=== PATIENT | male | born 2000 | race Caucasian/White ===

== ENCOUNTER 2021-08-08 00:38 | Inpatient (IN) | payer OTHER ==
[~2021-08-08] VITALS: Ht 188 cm; Wt 65.8 kg
[2021-08-08] VITALS (9 sets, daily range): BP systolic 99–136; BP diastolic 59–78
[2021-08-08] MEDS ORDERED: LACTATED RINGERS 1,000 ML IV ONE ×3 (02:15→04:54)
[2021-08-08 02:23] LABS: BILIRUBIN,URINE NEGATIVE (NEGATIVE); CLARITY,URINE CLEAR; COLOR,URINE YELLOW; GLUCOSE, URINE (UA) NEGATIVE (NEGATIVE); KETONES,URINE NEGATIVE (NEGATIVE); LEUKOCYTE ESTERASE ,URINE NEGATIVE (NEGATIVE); NITRITE,URINE NEGATIVE (NEGATIVE); PROTEIN,URINE NEGATIVE (NEGATIVE)
[2021-08-08 02:28] LABS: BASOPHILS # (AUTO) 0.1 10^3/uL (0.0-0.1); BASOPHILS % (AUTO) 0 % (0-10); EOSINOPHILS % (AUTO) 0 % (0-10); HEMATOCRIT 46 % (40-54); HEMOGLOBIN 15.8 g/dL (13.3-17.7); LYMPHOCYTES # (AUTO) 0.7 10^3/uL (1.0-4.0); LYMPHOCYTES % (AUTO) 4 % (12-44); MEAN CORPUSCULAR HEMOGLOBIN 30 pg (25-34); MEAN CORPUSCULAR HGB CONC 34 g/dL (32-36); MEAN CORPUSCULAR VOLUME 87 fL (80-99); MEAN PLATELET VOLUME 11.2 fL (9.0-12.2); MONOCYTES % (AUTO) 5 % (0-12); NEUTROPHILS # (AUTO) 16.5 10^3/uL (1.8-7.8); NEUTROPHILS % (AUTO) 90 % (42-75); PLATELET COUNT 271 10^3/uL (130-400); WHITE BLOOD COUNT 18.3 10^3/uL (4.3-11.0)
[2021-08-08 02:33] LABS: ALBUMIN 4.8 GM/DL (3.2-4.5); CHLORIDE 101 MMOL/L (98-107); SODIUM 137 MMOL/L (135-145)
[2021-08-08 02:34] LABS: AMYLASE 85 U/L (25-125); CALCIUM 9.6 MG/DL (8.5-10.1)
[2021-08-08 02:36] LABS: GLUCOSE 150 MG/DL (70-105); TOTAL PROTEIN 7.5 GM/DL (6.4-8.2)
[2021-08-08 02:37] LABS: BILIRUBIN,TOTAL 1.2 MG/DL (0.1-1.0); CARBON DIOXIDE 21 MMOL/L (21-32)
[2021-08-08 02:39] LABS: ALKALINE PHOSPHATASE 63 U/L (40-136); AMORPHOUS SEDIMENT,UR FEW AMOR PHOSPHATE /LPF; BACTERIA,URINE FEW /HPF; CREATININE SERUM 0.93 MG/DL (0.60-1.30); GFR ESTIMATED 120
[2021-08-08 02:40] LABS: BUN/CREATININE RATIO 8
[2021-08-08 02:42] LABS: ALANINE AMINOTRANSFERASE 13 U/L (0-55)
[2021-08-08 02:43] LABS: LIPASE 6 U/L (8-78)
[2021-08-08] MEDS ORDERED: NS 100 ML (IVPB) BAG IV ONE (03:00)
[2021-08-08] MEDS ORDERED: IOHEXOL 350 MG/ML 100 ML (OMNIPAQUE 350) VIAL IV ONE (03:00)
[2021-08-08] MEDS ORDERED: CATHETER FLUSH 10 ML SYR IV PRN (03:00)
--- NOTE | 2021-08-08 03:01 | ED Abdominal Pain ---
General Chief Complaint: Abdominal/GI Problems Stated Complaint: ABD PAIN Nursing Triage Note: PT ARRIVAL TO ER WITH COMPLAINT OF ABDOMINAL PAIN X 24 HOURS. PT DENIES NAUSEA, VOMITING, OR DIARRHEA. PT STATES THAT PAIN IS A BLOATING LIKE PAIN THAT IS CONSTANT. Source of Information: Patient History of Present Illness Date Seen by Provider: Aug 08, 2021 Time Seen by Provider: 01:55 Initial Comments PT ARRIVES VIA POV C/O GENERALIZED ABDOMINAL PAIN SINCE 2200 LAST NIGHT PAIN FEELS LIKE A CONSTANT PRESSURE/BLOATED FEELING PAIN WAXES AND WANES, BUT NEVER GOES AWAY--RATES PAIN 8-9 AT WORST, 6-7 NOW. NOTHING WORSENS OR IMPROVES PAIN HAS TRIED TAKING 2 PHAZYME TABLETS A COUPLE OF HOURS AGO WITHOUT RELIEF NO NAUSEA/VOMITING OR DIARRHEA. HAD NORMAL BM TODAY HAS HAD DECREASED APPETITE TODAY. LAST FOOD INTAKE WAS SOME CRACKERS AROUND 2200 TONIGHT NO FEVER NO URINARY SYMPTOMS NO COUGH/CONGESTION OR RECENT ILLNESS NO HISTORY OF SIMILAR NO PRIOR GI / PROBLEMS OR ABDOMINAL SURGERIES NO SURGERIES OF ANY KIND PT TAKES MEDICATION FOR ADD AND ANXIETY, OTHERWISE NO CHRONIC MEDICAL PROBLEMS PT IS [employer] STUDENT FROM [employer], [place] Allergies and Home Medications Allergies Coded Allergies: No Known Drug Allergies (Unverified , 08/08/21) Patient Home Medication List Home Medication List Reviewed: Yes Docusate Sodium (Colace) 100 Mg Capsule, 100 MG PO BID Prescribed by: POLI HOLLEY on 08/08/21 0812 Hydrocodone/Acetaminophen (Hydrocodone-Acetamin 5-325 mg) 5 Mg-325 Mg Tablet, 1 EACH PO Q4H PRN for PAIN-MODERATE (5-7) Prescribed by: POLI HOLLEY on 08/08/21 0812 Review of Systems Review of Systems Constitutional: no symptoms reported EENTM: No Symptoms Reported Respiratory: No Symptoms Reported Cardiovascular: No Symptoms Reported Gastrointestinal: See HPI, Abdominal Pain; Denies Constipated, Denies Diarrhea, Denies Nausea; Poor Appetite; Denies Vomiting Genitourinary: No Symptoms Reported Musculoskeletal: no symptoms reported Skin: no symptoms reported Psychiatric/Neurological: No Symptoms Reported Endocrine: No Symptoms Reported Hematologic/Lymphatic: No Symptoms Reported Past Zqwmwmw-Hdgiff-Rguwjc Hx Patient Social History Tobacco Use?: No Use of E-Cig and/or Vaping dev: No Substance use?: No Alcohol Use?: Yes Alcohol type: Beer, Hard Liquor Alcohol Frequency: Several times a month Pt feels they are or have been: No Immunizations Up To Date Influenza Vaccine Up-to-Date: Yes; Up-to-Date Past Medical History Surgeries: No Respiratory: No Cardiac: No Neurological: No Genitourinary: No Gastrointestinal: No Musculoskeletal: No Endocrine: No HEENT: No Cancer: No Psychosocial: Yes ADD/ADHD, Sleep Difficulties, Anxiety Integumentary: No Blood Disorders: No Physical Exam Vital Signs Vital Signs - First Documented 08/08/21 01:42 Temp 36.9 Pulse 62 Resp 14 B/P (MAP) 112/70 (84) Pulse Ox 97 O2 Delivery Room Air Capillary Refill : Less Than 3 Seconds Height/Weight/BMI Height: '" Weight: lbs. oz. kg; 17.00 BMI Method: General Appearance: WD/WN, no apparent distress, thin, other (VERY TALL AND VERY THIN. WALKS UPRIGHT AND MOVES WITHOUT DIFFICULTY) Neck: normal inspection Respiratory: normal breath sounds, no respiratory distress, no accessory muscle use Cardiovascular: regular rate, rhythm, no murmur Gastrointestinal: normal bowel sounds, soft, no organomegaly, no pulsatile mass; No distended, No guarding; tenderness (DIFFUSE TENDERNESS, BUT IS MOST TENDER TO ENTIRE RIGHT SIDE OF ABDOMEN. + REBOUND. NEGATIVE ROVSING'S. EQUIVOCAL PSOAS. NEGATIVE OBTURATOR. NEGATIVE HEEL TAP. 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, no motor/sensory deficits, alert, normal mood/affect, oriented x 3 Skin: normal color, warm/dry; No rash Progress/Results/Core Measures Results/Orders Lab Results Laboratory Tests Test 08/08/21 02:10 Range/Units White Blood Count 18.3 H 4.3-11.0 10^3/uL Red Blood Count 5.28 4.30-5.52 10^6/uL Hemoglobin 15.8 13.3-17.7 g/dL Hematocrit 46 40-54 % Mean Corpuscular Volume 87 80-99 fL Mean Corpuscular Hemoglobin 30 25-34 pg Mean Corpuscular Hemoglobin Concent 34 32-36 g/dL Red Cell Distribution Width 12.3 10.0-14.5 % Platelet Count 271 130-400 10^3/uL Mean Platelet Volume 11.2 9.0-12.2 fL Immature Granulocyte % (Auto) 0 % Neutrophils (%) (Auto) 90 H 42-75 % Lymphocytes (%) (Auto) 4 L 12-44 % Monocytes (%) (Auto) 5 0-12 % Eosinophils (%) (Auto) 0 0-10 % Basophils (%) (Auto) 0 0-10 % Neutrophils # (Auto) 16.5 H 1.8-7.8 10^3/uL Lymphocytes # (Auto) 0.7 L 1.0-4.0 10^3/uL Monocytes # (Auto) 1.0 0.0-1.0 10^3/uL Eosinophils # (Auto) 0.0 0.0-0.3 10^3/uL Basophils # (Auto) 0.1 0.0-0.1 10^3/uL Immature Granulocyte # (Auto) 0.1 0.0-0.1 10^3/uL Neutrophils % (Manual) 89 % Lymphocytes % (Manual) 5 % Monocytes % (Manual) 6 % Blood Morphology Comment NORMAL Urine Color YELLOW Urine Clarity CLEAR Urine pH 7.0 5-9 Urine Specific [place] 1.025 H 1.016-1.022 Urine Protein NEGATIVE NEGATIVE Urine Glucose (UA) NEGATIVE NEGATIVE Urine Ketones NEGATIVE NEGATIVE Urine Nitrite NEGATIVE NEGATIVE Urine Bilirubin NEGATIVE NEGATIVE Urine Urobilinogen 0.2 < = 1.0 MG/DL Urine Leukocyte Esterase NEGATIVE NEGATIVE Urine RBC (Auto) NEGATIVE NEGATIVE Urine RBC NONE /HPF Urine WBC NONE /HPF Urine Squamous Epithelial Cells NONE /HPF Urine Crystals PRESENT H /LPF Urine Amorphous Sediment FEW KD PHOSPHATE H /LPF Urine Bacteria FEW H /HPF Urine Casts NONE /LPF Urine Mucus MODERATE H /LPF Urine Culture Indicated NO Sodium Level 137 135-145 MMOL/L Potassium Level 4.0 3.6-5.0 MMOL/L Chloride Level 101 98-107 MMOL/L Carbon Dioxide Level 21 21-32 MMOL/L Anion Gap 15 H 5-14 MMOL/L Blood Urea Nitrogen 7 7-18 MG/DL Creatinine 0.93 0.60-1.30 MG/DL Estimat Glomerular Filtration Rate 120 BUN/Creatinine Ratio 8 Glucose Level 150 H 70-105 MG/DL Calcium Level 9.6 8.5-10.1 MG/DL Corrected Calcium 8.5-10.1 MG/DL Total Bilirubin 1.2 H 0.1-1.0 MG/DL Aspartate Amino Transf (AST/SGOT) 14 5-34 U/L Alanine Aminotransferase (ALT/SGPT) 13 0-55 U/L Alkaline Phosphatase 63 40-136 U/L Total Protein 7.5 6.4-8.2 GM/DL Albumin 4.8 H 3.2-4.5 GM/DL Amylase Level 85 25-125 U/L Lipase 6 L 8-78 U/L My Orders Orders - RACHAEL GARVIN DO Ed Iv/Invasive Line Start (08/08/21 01:56) Amylase (08/08/21 01:56) Cbc With Automated Diff (08/08/21 01:56) Comprehensive Metabolic Panel (08/08/21 01:56) Lipase (08/08/21 01:56) Ua Culture If Indicated (08/08/21 01:56) Ed Iv/Invasive Line Start (08/08/21 01:56) Ct Abd/Pelv W (Appendicitis) (08/08/21 02:12) Ed Iv/Invasive Line Start (08/08/21 02:12) Lactated Ringers (Lr 1000 Ml Iv Solution (08/08/21 02:15) Manual Differential (08/08/21 02:10) Iohexol Injection (Omnipaque 350 Mg/Ml 1 (08/08/21 03:00) Sodium Chloride Flush (Catheter Flush Sy (08/08/21 03:00) Ns (Ivpb) (Sodium Chloride 0.9% Ivpb Bag (08/08/21 03:00) Medications Given in ED Vital Signs/I&O 08/08/21 01:42 Temp 36.9 Pulse 62 Resp 14 B/P (MAP) 112/70 (84) Pulse Ox 97 O2 Delivery Room Air Blood Pressure Mean: 84 Progress Progress Note : Progress Note NO DETERIORATION IN PT'S CONDITION DURING ER STAY Diagnostic Imaging Comments CT ABDOMEN/PELVIS--PER [facility] RADIOLOGIST VIA PHONE AT 0351 + APPENDICITIS --APPENDIX 2.1 CM DIAMETER WITH OBSTRUCTING APPENDICOLITH, WITH SURROUNDING FLUID, BUT NO OBVIOUS PERFORATION OR ABSCESS. Reviewed: Reviewed by Me, Discussed w/Radiologist Departure Communication (Admissions) Family Conversation 0400--SPOKE WITH PT'S MOTHER ON PHONE AND UPDATED HER ON PT'S CONDITION. 0353--SPOKE WITH DR. HOLLEY, SURGEON. ACCEPTS PT FOR ADMIT. ORDERS NOTED. WILL PLAN ON TAKING TO SURGERY AT 0730. LINK TRAINER MECHANIC NOTIFIED. Impression Primary Impression: Appendicitis Disposition: ADMITTED INPATIENT Condition: Stable Admissions Decision to Admit Reason: Admit from ER (General) Decision to Admit/Date: Aug 08, 2021 Time/Decision to Admit Time: 03:55 Departure-Patient Inst. Referrals: NO,LOCAL PHYSICIAN (PCP/Family) Primary Care Physician Scripts Hydrocodone/Acetaminophen (Hydrocodone-Acetamin 5-325 mg) 5 Mg-325 Mg Tablet 1 EACH PO Q4H PRN for PAIN-MODERATE (5-7), #30 TAB Prov: POLI HOLLEY DO 08/08/21 Docusate Sodium (Colace) 100 Mg Capsule 100 MG PO BID, #30 CAP Prov: POLI HOLLEY DO 08/08/21 RACHAEL GARVIN DO Aug 08, 2021 03:01
[2021-08-08 03:11] LABS: LYMPHOCYTES % (MANUAL) 5 %; NEUTROPHILS % (MANUAL) 89 %
[2021-08-08 03:12] LABS: MONOCYTES % (MANUAL) 6 %; RBC MORPH NORMAL
[2021-08-08] MEDS ORDERED: fentaNYL INJ 100 MCG/2 ML AMP IVP ONE ×2 (04:15→08:45)
[2021-08-08] MEDS ORDERED: PIPERACILLIN SODIUM/TAZOBACTAM 4.5 GM in NS (IVPB) 100 ML IV ONE (04:15)
[2021-08-08] MEDS ORDERED: fentaNYL INJ 100 MCG/2 ML AMP ONE ×2 (06:11→07:11)
[2021-08-08] MEDS ORDERED: ONDANSETRON 4 MG/2 ML (SDV) Z0FRAN ONE ×2 (06:12→07:11)
[2021-08-08] MEDS ORDERED: ONDANSETRON 4 MG/2 ML (SDV) Z0FRAN IV PRN (06:15)
[2021-08-08] MEDS: LACTATED RINGERS 1,000 ML IV SCH ×3 (06:17→13:23)
[2021-08-08] MEDS: fentaNYL INJ 100 MCG/2 ML AMP IV PRN ×2 (06:18→11:21)
--- NOTE | 2021-08-08 06:28 | Diagnostic Imaging Report ---
PROCEDURE: CT abdomen and pelvis with contrast, rule out appendicitis. TECHNIQUE: Multiple contiguous axial images were obtained through the abdomen and pelvis after the administration of intravenous contrast. All CT scans use one or more of the following dose optimizing techniques: automated exposure control, MA and/or KvP adjustment based on patient size and exam type or iterative reconstruction. INDICATION: Right lower quadrant pain. FINDINGS: There is marked distention of the appendix which is fluid-filled with appendicolith. The appendix measures 2 cm. There is periappendiceal fluid. There is no free air. Stomach and small bowel are not distended. Colon shows normal stool and gas pattern. There is some free fluid in the pelvis. The lung bases are clear. Liver, gallbladder and bile ducts are normal. Pancreas and spleen are normal. Adrenal glands are not enlarged. Kidneys appear normal. There is good enhancement of the aorta and abdominal vessels and organs which appear normal. No bony abnormalities. IMPRESSION: 1. Fluid-filled distended appendix with appendicolith and periappendiceal fluid are all consistent with acute appendicitis. This is in agreement with the preliminary report. Dictated by: Dictated on workstation # [id number]
[2021-08-08] MEDS ORDERED: LIDOCAINE/EPI 2% 1:200,00 (XYLOCAINE) 20 ML VIAL ONE (06:35)
--- NOTE | 2021-08-08 06:45 | History & Physical-Surgical ---
ALBARO NOBLES Tatyana 08/08/21 0645: History of Present Illness History of Present Illness Reason for visit/HPI CC: Abdominal pain HPI: Mr. Sherwood is a 21 year old male with a past medical history of ADHD and anxiety who presented to the ED at [facility] last night around 2200 for abdominal pain. He reports his abdominal pain started on Friday around 2200 and he thought it was a stomachache. The pain continually got worse which brought him to the hospital. He reported the pain began in the middle of his stomach and then moved into his epigastric region and LUQ. The pain has been constant and has progressively gotten worse. He describes it as a bloating and aching feeling. He says medicine at the hospital makes it better; nothing makes it worse. He endorses associated nausea without vomiting. He rate the severity of his pain as an 8-9/10. He last ate something at 2200 last night. Date of Admission Aug 08, 2021 at 04:00 Date Seen by a Provider: Aug 08, 2021 Time Seen by a Provider: 06:25 I consulted on this patient on 08/08/21 06:40 Attending Physician Poli Holley DO Admitting Physician No,Local Physician Consult Allergies and Home Medications Allergies Coded Allergies: No Known Drug Allergies (Unverified , 08/08/21) Past Oujaosx-Vyalqo-Wtvkjp Hx Patient Social History Employed/Student: student, full-time ([employer]) Tobacco Use?: No Smoking Status: Never a Smoker Use of E-Cig and/or Vaping dev: No Substance use?: No Alcohol Use?: Yes Alcohol type: Beer, Hard Liquor Alcohol Frequency: Several times a month (Averages 1 drink per week) Pt feels they are or have been: No Immunizations Up To Date Tetanus Booster (TDap): Less Than 5 Years Current Status Advance Directives: No Communicates: Verbally Primary Language: Fijian Preferred Spoken Language: Fijian Is interpretation needed?: No Implanted or Applied Medical D: None Past Medical History ADD/ADHD, Sleep Difficulties, Anxiety Blood Disorders: No [place] teeth removal. Wart removal. Family Medical History Diabetes (Grandfather), Other Conditions/Hx (Lupus) Review of Systems Constitutional: chills; No fever EENTM: No blurred vision, No double vision Respiratory: No cough, No short of breath Cardiovascular: No chest pain, No palpitations Gastrointestinal: abdominal pain; No constipation, No diarrhea; nausea; No vomiting Musculoskeletal: No back pain, No joint pain Skin: No lesions, No lumps Psychiatric/Neurological: Anxiety; Denies Depressed, Denies Headache, Denies Numbness Physical Exam Vital Signs Vital Signs - First Documented 08/08/21 01:42 Temp 36.9 Pulse 62 Resp 14 B/P (MAP) 112/70 (84) Pulse Ox 97 O2 Delivery Room Air Capillary Refill : Less Than 3 Seconds Height, Weight, BMI Height: '" Weight: lbs. oz. kg; 18.61 BMI Method: General Appearance: WD/WN, Mild Distress (Patient will wince in pain during conversation, reports 12/22 pain.) HEENT: PERRL/EOMI, Moist Mucous Membranes; No Scleral Icterus (L), No Scleral Icterus (R) Neck: Normal Inspection, Non Tender; No Lymphadenopathy (L), No Lymphadenopathy (R) Respiratory: Chest Non Tender, Lungs Clear, Normal Breath Sounds, No Accessory Muscle Use, No Respiratory Distress Cardiovascular: Regular Rate, Rhythm, No Edema, No Murmur, Normal Peripheral Pulses Gastrointestinal: Normal Bowel Sounds, Soft; No Distended, No Guarding; Tenderness (Exquisitely tender in RLQ with general tenderness to palpation in all 4 quadrants) Extremity: Normal Inspection, Normal Range of Motion, Non Tender, No Calf Te nderness, No Pedal Edema Neurologic/Psychiatric: Alert, Oriented x3, No Motor/Sensory Deficits, Normal Mood/Affect Skin: Normal Color, Warm/Dry Lymphatic: No Adenopathy (Head and neck) Data Review Labs Laboratory Tests 08/08/21 02:10: White Blood Count 18.3H, Red Blood Count 5.28, Hemoglobin 15.8, Hematocrit 46, Mean Corpuscular Volume 87, Mean Corpuscular Hemoglobin 30, Mean Corpuscular Hemoglobin Concent 34, Red Cell Distribution Width 12.3, Platelet Count 271, Mean Platelet Volume 11.2, Immature Granulocyte % (Auto) 0, Neutrophils (%) (Auto) 90H, Lymphocytes (%) (Auto) 4L, Monocytes (%) (Auto) 5, Eosinophils (%) (Auto) 0, Basophils (%) (Auto) 0, Neutrophils # (Auto) 16.5H, Lymphocytes # (Auto) 0.7L, Monocytes # (Auto) 1.0, Eosinophils # (Auto) 0.0, Basophils # (Auto) 0.1, Immature Granulocyte # (Auto) 0.1, Neutrophils % (Manual) 89, Lymphocytes % (Manual) 5, Monocytes % (Manual) 6, Blood Morphology Comment NORMAL, Urine Color YELLOW, Urine Clarity CLEAR, Urine pH 7.0, Urine Specific [place] 1.025H, Urine Protein NEGATIVE, Urine Glucose (UA) NEGATIVE, Urine Ketones NEGATIVE, Urine Nitrite NEGATIVE, Urine Bilirubin NEGATIVE, Urine Urobilinogen 0.2, Urine Leukocyte Esterase NEGATIVE, Urine RBC (Auto) NEGATIVE, Urine RBC NONE, Urine WBC NONE, Urine Squamous Epithelial Cells NONE, Urine Cry stals PRESENTH, Urine Amorphous Sediment FEW KD PHOSPHATEH, Urine Bacteria FEWH, Urine Casts NONE, Urine Mucus MODERATEH, Urine Culture Indicated NO, Sodium Level 137, Potassium Level 4.0, Chloride Level 101, Carbon Dioxide Level 21, Anion Gap 15H, Blood Urea Nitrogen 7, Creatinine 0.93, Estimat Glomerular Filtration Rate 120, BUN/Creatinine Ratio 8, Glucose Level 150H, Calcium Level 9.6, Corrected Calcium , Total Bilirubin 1.2H, Aspartate Amino Transf (AST/SGOT) 14, Alanine Aminotransferase (ALT/SGPT) 13, Alkaline Phosphatase 63, Total Protein 7.5, Albumin 4.8H, Amylase Level 85, Lipase 6L 08/08/21 05:42: Influenza Type A (RT-PCR) Not Detected, Influenza Type B (RT-PCR) Not Detected, SARS-CoV-2 RNA (RT-PCR) Not Detected Radiology Date of Exam:08/08/21 CT ABD/PELV W (APPENDICITIS) PROCEDURE: CT abdomen and pelvis with contrast, rule out appendicitis. TECHNIQUE: Multiple contiguous axial images were obtained through the abdomen and pelvis after the administration of intravenous contrast. All CT scans use one or more of the following dose optimizing techniques: automated exposure control, MA and/or KvP adjustment based on patient size and exam type or iterative reconstruction. INDICATION: Right lower quadrant pain. FINDINGS: There is marked distention of the appendix which is fluid-filled with appendicolith. The appendix measures 2 cm. There is periappendiceal fluid. There is no free air. Stomach and small bowel are not distended. Colon shows normal stool and gas pattern. There is some free fluid in the pelvis. The lung bases are clear. Liver, gallbladder and bile ducts are normal. Pancreas and spleen are normal. Adrenal glands are not enlarged. Kidneys appear normal. There is good enhancement of the aorta and abdominal vessels and organs which appear normal. No bony abnormalities. IMPRESSION: 1. Fluid-filled distended appendix with appendicolith and periappendiceal fluid are all consistent with acute appendicitis. This is in agreement with the preliminary report. Assessment/Plan Assessment/Plan Admission Diagonsis Abdominal pain Acute appendicitis Leukocytosis ADHD Anxiety Assessment/Plan Assessment: Abdominal pain - RLQ most tender, tender in all 4 quadrants Acute appendicitis - CT shows fluid-filled distended appendix with appendicolith and periappendiceal fluid Leukocytosis - 18.3 on admission ADHD Anxiety Plan: Continue IVF and pain control PRN Pip/tazo given CT confirmed acute appendicitis Patient n.p.o since 2200 last night To operating room today POLI HOLLEY DO 08/08/21 0720: History of Present Illness History of Present Illness Reason for visit/HPI CC: abdominal pain diffuse. 21 year old male with periumbilical pain that started Friday night. Constant pain. Doon like stomach ache. Continue to worsen. Patient states pain radiated to epigastric, LUQ and RLQ. Having nausea, no emesis. Movement makes worse. Nothing better. Denies fever sweats chills shortness of breath or chest pain. Ct scan consistent with appendicitis and appendicolith. Allergies and Home Medications Allergies Coded Allergies: No Known Drug Allergies (Unverified , 08/08/21) Patient Home Medication List Home Medication List Reviewed: Yes Past Jhmbira-Higrod-Jorbqg Hx Past Medical History Surgeries: Abdominal (No surgeries) Family Medical History Reviewed Nursing Family Hx No Pertinent Family Hx Anxiety, ADHD Review of Systems Constitutional: chills; No fever EENTM: No blurred vision, No double vision Respiratory: No cough, No short of breath Cardiovascular: No chest pain, No palpitations Gastrointestinal: abdominal pain; No constipation, No diarrhea; nausea; No v omiting Genitourinary: No decreased output, No discharge Musculoskeletal: No back pain, No joint pain Skin: No lesions, No lumps Psychiatric/Neurological: Anxiety; Denies Depressed, Denies Headache, Denies Numbness All Other Systems Reviewed Negative Unless Noted: Yes (Negative excepted noted.) Physical Exam General Appearance: WD/WN, Mild Distress (uncomfortable/anxious) HEENT: PERRL/EOMI, Normal ENT Inspection Neck: Normal Inspection, Non Tender Respiratory: Chest Non Tender, No Accessory Muscle Use, No Respiratory Distress Cardiovascular: Regular Rate, Rhythm, No JVD Gastrointestinal: No Soft, No Distended, No Guarding; Tenderness (Exquisitely tender in RLQ with general tenderness to palpation in all 4 quadrants) Rectal: Deferred Back: No CVA Tenderness Extremity: Normal Inspection, Normal Range of Motion, Non Tender, No Calf Tenderness Neurologic/Psychiatric: Alert, Oriented x3, No Motor/Sensory Deficits, Normal Mood/Affect Skin: Normal Color Lymphatic: No Adenopathy (Head and neck) Assessment/Plan Assessment/Plan Admission Diagonsis Abdominal pain-diffuse Acute appendicitis Leukocytosis ADHD Anxiety Admission Status: Observation Assessment/Plan Abdominal pain-diffuse - RLQ most tender, tender in all 4 quadrants Acute appendicitis - CT shows fluid-filled distended appendix with appendicolith and periappendiceal fluid Leukocytosis - 18.3 on admission ADHD Anxiety Plan: Continue IVF and pain control PRN Pip/tazo given CT confirmed acute appendicitis Patient n.p.o since 2200 last night To operating room today Patient and family understand risks and benefits of laparoscopic appendectomy all other indicated procedures. Supervisory-Addendum Brief Verification & Attestation Participated in pt care: history, MDM, physical Personally performed: exam, history, MDM, supervision of care Care discussed with: Medical Student Procedures: n/a Results interpretation: Verified all documentation Verification and Attestation of Medical Student E/M Service A medical student performed and documented this service in my presence. I reviewed and verified all information documented by the medical student and made modifications to such information, when appropriate. I personally performed the physical exam and medical decision making. Poli Holley, Aug 08, 2021,07:22 ALBARO NOBLES Aug 08, 2021 06:45 POLI HOLLEY DO Aug 08, 2021 07:20
[2021-08-08] MEDS: LACTATED RINGERS 1,000 ML IV PRN ×2 (07:05→08:37)
[2021-08-08] MEDS ORDERED: ROCURONIUM 50 MG/5 ML (ZEMURON) VIAL IV ONE (07:11)
[2021-08-08] MEDS ORDERED: proPOfol 200 MG/20 ML (DIPRIVAN) VIAL IV ONE (07:11)
[2021-08-08] MEDS ORDERED: MIDAZOLAM 2 MG/2 ML (VERSED) VIAL ONE (07:11)
[2021-08-08] MEDS ORDERED: LIDOCAINE PF 2% 5 ML (XYLOCAINE) VIAL ONE (07:11)
[2021-08-08] MEDS ORDERED: ceFAZolin INJECTION 1,000 MG VIAL IV ONE (07:15)
[2021-08-08] MEDS ORDERED: ceFAZolin INJECTION 2,000 MG ONE (07:16)
[2021-08-08] MEDS ORDERED: SUCCINYLCHOLINE INJ 100 MG/5 ML SYR/VIAL ONE (07:20)
[2021-08-08] MEDS ORDERED: NEOSTIGMINE 3 MG/3 ML VIAL ONE (08:00)
[2021-08-08] MEDS ORDERED: GLYCOPYRROLATE 0.2 MG/ML (ROBINUL) 2 ML VIAL ONE (08:00)
[2021-08-08] MEDS ORDERED: ACHD5005 PO (08:12)
[2021-08-08] MEDS ORDERED: DOCU-143 PO (08:12)
--- NOTE | 2021-08-08 08:13 | Discharge Inst-Simple/Standard ---
Discharge Inst-Standard Discharge Medications New, Converted or Re-Newed RX: Transmitted to Pharmacy Patient Instructions/Follow Up Plan of Care/Instructions/FU: 2 weeks Kalani Activity as Tolerated: No Discharge Diet: Regular Diet Other Inst to Patient Follow up Appt: Make appointment for 2 week. Instructions: No lifting greater than 10 pounds. No strenuous activity. May shower in 24 hours, no tub bath or soaking. Use incentive spirometer at home as directed. No Smoking Skin/Wound Care: You have special glue over your incision that will fall off on it's own. Symptoms to Report: Appetite Changes, Extremity Discoloration, Numbness/Tingling, Swelling Increased, Bleeding Excessive, Eyesight Changes, Pain Increased, Urine Color Change, Constipation(Persistent), Fever over 101 degree F, Pain/Pressure in chest, Urinating Difficulty, Cough Up/Vomit Blood, Heart Beat Irreg/Pounding, Pain/Pressure in jaw, Vaginal Bleeding Increase, Cramps in feet or legs, Lightheadedness, Pain/Pressure in shoulder, Diarrhea(Persistent), Memory Changes Suddenly, Questions/Concerns, Weight gain consecutive days, Dizziness/Fainting, Nausea/Vomiting, Shortness of Breath, Weight gain over 2 pounds If questions or concerns contact your physician Or seek help at emergency department. POLI HOLLEY DO Aug 08, 2021 08:13
--- NOTE | 2021-08-08 08:14 | Progress Note-Post Operative ---
Post-Operative Progess Note Surgeon (s)/Waterworks Pump Station Operator (s) Surgeon POLI HOLLEY DO Waterworks Pump Station Operator: na Pre-Operative Diagnosis acute appendicitis Post-Operative Diagnosis same Procedure & Operative Findings Date of Procedure 08/08/21 Procedure Performed/Findings 4PROCEDURE: Laparoscopic appendectomy. COMPLICATIONS: None. INDICATIONS: The patient is a 21 year old male who has been having abdominal pain. Patient's exam consistent with appendicitis. I discussed risk and benefits of laparoscopic appendectomy and all indicated procedures with the possibility being a normal appendix. The patient understands the risks and benefits and wishes to proceed. Consent was signed on the chart. DESCRIPTION OF PROCEDURE: The patient was taken to the operating suite, prepped and draped in a sterile fashion. Timeout was performed. Local anesthetic was infiltrated just above the umbilicus and 11-blade scalpel was used to make a skin incision. Cautery was used to dissect down to the fascia and scored. Kochers were used to grasp and elevate it and the abdomen was then entered. A 0 Vicryl was placed in a [id number] fashion for closure at the end of the case. The balloon trocar was inserted into the abdomen and pneumoperitoneum was achieved. Under direct visualization of the laparoscope, a 5 mm trocar was placed in the suprapubic region and a 5 mm trocar was placed in the left lower quadrant. Appendix was located, inflamed and dilated. The base of the appendix was dissected around. Once at the base an Endo-ELY 2.5 stapler was then fired across the base of the appendix. The mesoappendix was then divided. It was then placed in an Endobag and removed through the 12 mm trocar site. The abdomen was then irrigated and suctioned. No other pathology noted. The abdomen was then desufflated and the trocars were removed. The 0 Vicryl placed at the beginning of the case was then tied closing the 12 mm fascial defect. The skin was then closed using 4-0 Monocryl in a subcuticular fashion. The abdomen was then washed and dried and Skin Affix was placed over the incisions. The patient tolerated the procedure well without any complications and was taken to the recovery room in stable condition. Anesthesia Type general Estimated Blood Loss Estimated blood loss (mL): minimal Specimens/Packing Specimens Removed appendix POLI HOLLEY DO Aug 08, 2021 08:14
[2021-08-08] MEDS ORDERED: HYDROcodone/APAP 5 MG/325 MG (LORTAB) TAB PO PRN (08:15)
[2021-08-08] MEDS ORDERED: SEVOFLURANE (ULTANE) 15 ML INHAL SOLN ONE (08:19)
[2021-08-08] MEDS ORDERED: MEPERIDINE (DEMEROL) INJ 50 MG/ML IVP ONE (08:45)
[2021-08-08] MEDS ORDERED: PROMETHAZINE INJ 25 MG/ML (PHENERGAN) AMP IVP ONE (08:45)
[2021-08-08] MEDS ORDERED: ONDANSETRON 4 MG/2 ML (SDV) Z0FRAN IVP PRN (08:45)
[2021-08-08] MEDS ORDERED: PIPERACILLIN SODIUM/TAZOBACTAM 4.5 GM in NS (IVPB) 100 ML IV SCH (10:00)
--- NOTE | 2021-08-08 10:02 | Anesthesia-General Post-Op ---
General Patient Condition Mental Status/LOC: Same as Preop Cardiovascular: Satisfactory Nausea/Vomiting: Absent Respiratory: Satisfactory Pain: Controlled Complications: Absent Post Op Complications Complications None Follow Up Care/Instructions Patient Instructions None needed. Anesthesia/Patient Condition Patient Condition Patient is doing well, no complaints, stable vital signs, no apparent adverse anesthesia problems. No complications reported per nursing. SIDDHARTHA RAE CRNA Aug 08, 2021 10:02
== END 2021-08-08 15:40 | disposition home or self-care (01) | DRG 343 ==
LOC: ER 00:46 → 4TH 04:00
PROVIDERS: ADMIT Surgery; ATTEND Surgery
PROC: 0DTJ4ZZ Resection of Appendix, Percutaneous Endoscopic Approach (ICD-10-PCS; principal; 2021-08-08 07:18)
DX: K35.80 Unspecified acute appendicitis (principal); F90.9 Attention-deficit hyperactivity disorder, unspecified type; F41.9 Anxiety disorder, unspecified; Z20.822 Contact with and (suspected) exposure to COVID-19
CPT/HCPCS: 36415; 74177; 80053; 81000; 82150; 83690; 85007; 85027; 87081; 87636; 94664

== ENCOUNTER → 2021-09-04 | Outpatient (CLI) | payer OTHER ==
[~2021-09-04] MED LIST: ACHD5005 PO; DOCU-143 PO
--- NOTE | 2021-09-04 11:41 | Diagnostic Imaging Report ---
PROCEDURE: US Scrotum w/ Duplex. TECHNIQUE: Multiple real-time phillips images were obtained of the scrotum in various projections bilaterally. Color Doppler images were also obtained. INDICATION: Left-sided testicular pain. COMPARISON: None. FINDINGS: The testicles are normal in size, shape and echogenicity. The right testis measures 4.6 x 2.3 x 2.7 cm. The left testis measures 4.7 x 2.0 x 2.9 cm. There is normal color flow Doppler signal of both testicles. No focal testicular mass is seen on either side. The right and left epididymides are unremarkable. There is no sonographic evidence of epididymitis. IMPRESSION: 1. Normal testicular sonogram. No evidence of testicular mass or torsion. Dictated by: Dictated on workstation # [id number]
== END ==
LOC: RAD 11:06
PROVIDERS: ATTEND Nurse Practitioner Family
DX: N50.812 Left testicular pain (principal); N50.89 Other specified disorders of the male genital organs; F90.8 Attention-deficit hyperactivity disorder, other type
CPT/HCPCS: 76870